=== PATIENT | female | born 1980 | race Caucasian/White ===

== ENCOUNTER 2021-02-15 20:31 | Emergency (ER) | payer OTHER ==
[~2021-02-15] VITALS: Ht 165.1 cm; Wt 81.0 kg
[2021-02-15] MEDS ORDERED: PYRIDIUM200 MG PO (23:20)
[2021-02-15] MEDS ORDERED: BACTRIM DS TAB1 EACH PO (23:20)
== END 2021-02-15 23:54 | disposition home or self-care (01) ==
LOC: ED 20:31
DX: N12 Tubulo-interstitial nephritis, not specified as acute or chronic (principal)
CPT/HCPCS: 74176; 80048; 81001; 84703; 85025; 96374; 99284-25; J0696